=== PATIENT | female | born 1965 | race Caucasian/White ===

== ENCOUNTER 2020-10-13 12:21 | Emergency (ER) | payer BC ==
--- NOTE | 2020-10-13 13:13 | ER Document Report ---
ED Medical Screen (RME) - General Chief Complaint: Dizziness Stated Complaint: DIZZINESS Time Seen by Provider: 10/13/20 13:08 Mode of Arrival: Ambulatory Information source: Patient Notes: HPI; 55-year-old female past medical history significant for hypertension presents to the emergency room complaining of worsening lightheadedness with dizziness for the past 2 weeks. States she is feeling off balance when she walks. Feels like she is leaning to the right. Denies any trauma or injury. No recent head injuries. No nausea, no vomiting, no chest pain, no shortness of breath, no COVID-19 exposure. No history of vertigo. PE: Alert and oriented x3. Lungs: Clear to auscultation without rales, rhonchi, wheezes. Heart: Regular rate rhythm without murmurs, rubs, gallops. Ambulatory with a steady gait. Neurovascularly intact I have greeted and performed a rapid initial assessment of this patient. A comprehensive ED assessment and evaluation of the patient, analysis of test re sults and completion of the medical decision making process will be conducted by additional ED providers. I have specifically instructed the patient or family members with the patient to immediately return to any nursing staff should anything change in the patient's condition or with their chief complaint. TRAVEL OUTSIDE OF THE [place] IN LAST 30 DAYS: No Physical Exam - Vital signs Vitals: Temp Pulse Resp BP Pulse Ox 98.1 F 81 18 149/75 H 97 10/13/20 12:56 10/13/20 12:56 10/13/20 12:56 10/13/20 12:56 10/13/20 12:56 Course - Vital Signs Vital signs: Temp Pulse Resp BP Pulse Ox 98.8 F 83 18 191/99 H 98 10/13/20 13:08 10/13/20 13:08 10/13/20 13:08 10/13/20 13:08 10/13/20 13:08
[2020-10-13 14:01] LABS: ABSOLUTE BASOPHILS # (AUTO) 0.1 10^3/uL (0.0-0.2); ABSOLUTE EOSINOPHILS # (AUTO) 0.2 10^3/uL (0.0-0.6); ABSOLUTE LYMPHOCYTES (AUTO) 2.7 10^3/uL (0.5-4.7); ABSOLUTE MONOCYTES (AUTO) 0.8 10^3/uL (0.1-1.4); BASOPHILS % (AUTO) 0.8 % (0-2); EOSINOPHILS % (AUTO) 1.3 % (0-6); HEMATOCRIT 47.8 % (36.0-47.0); HEMOGLOBIN 16.5 g/dL (12.0-15.5); LYMPHOCYTES % (AUTO) 21.1 % (13-45); MEAN CORPUSCULAR HGB CONC 34.6 g/dL (32.0-36.0); MEAN CORPUSCULAR VOLUME 98 fl (80-97); PLATELET COUNT 485 10^3/uL (150-450); RED BLOOD COUNT 4.86 10^6/uL (3.72-5.28); RED CELL DISTRIBUTION WIDTH 12.4 % (11.5-14.0); SEGMENTED NEUTROPHILS % (AUTO) 70.8 % (42-78); TOTAL CELLS COUNTED % (AUTO) 100 %; WHITE BLOOD COUNT 12.7 10^3/uL (4.0-10.5)
--- NOTE | 2020-10-13 14:03 | RADIOLOGY REPORT (SQ) ---
EXAM DESCRIPTION: CT HEAD WITHOUT IMAGES COMPLETED DATE/TIME: 10/13/2020 1:53 pm REASON FOR STUDY: dizzy COMPARISON: None. TECHNIQUE: Axial images acquired through the brain without intravenous contrast. Images reviewed wi th bone, brain and subdural windows. Additional sagittal and coronal reconstructions were generated. Images stored on PACS. All CT scanners at this facility use dose modulation, iterative reconstruction, and/or weight based d osing when appropriate to reduce radiation dose to as low as reasonably achievable (ALARA). [facility]: Dose Right [facility]: CareDose [facility]: Dose Right [facility]: Teradose 4D [facility]: Smart roomlinx RADIATION DOSE: CT Rad equipment meets quality standard of care and radiation dose reduction techniq ues were employed. CTDIvol: 53.2 mGy. DLP: 991 mGy-cm. mGy. LIMITATIONS: None. FINDINGS: VENTRICLES: Normal size and contour. CEREBRUM: No masses. No hemorrhage. No midline shift. No evidence for acute infarction. Normal gra y/white matter differentiation. No areas of low density in the white matter. CEREBELLUM: No masses. No hemorrhage. No alteration of density. No evidence for acute infarction. EXTRAAXIAL SPACES: No fluid collections. No masses. ORBITS AND GLOBE: No intra- or extraconal masses. Normal contour of globe without masses. CALVARIUM: No fracture. PARANASAL SINUSES: No fluid or mucosal thickening. SOFT TISSUES: No mass or hematoma. OTHER: No other significant finding. IMPRESSION: NORMAL BRAIN CT WITHOUT CONTRAST. EVIDENCE OF ACUTE STROKE: NO. COMMENT: Quality ID # [id number]: Final reports with documentation of one or more dose reduction techniques (e.g., Automated exposure control, adjustment of the mA and/or kV according to patient size, use of iterative reconstruction technique) TECHNICAL DOCUMENTATION: JOB ID: [id number] 2010 [employer]- All Rights Reserved Reading location - IP/workstation name: [email or web address]
[2020-10-13 14:06] LABS: APPEARANCE,URINE CLEAR; BILIRUBIN,URINE NEGATIVE (NEGATIVE); COLOR,URINE YELLOW; GLUCOSE, URINE NEGATIVE (NEGATIVE); KETONES,URINE NEGATIVE (NEGATIVE); LEUKOCYTE ESTERASE,URINE NEGATIVE (NEGATIVE); NITRITE,URINE NEGATIVE (NEGATIVE); PROTEIN,URINE NEGATIVE (NEGATIVE); URINE SPECIFIC GRAVITY 1.008; UROBILINOGEN,URINE NEGATIVE mg/dL (<2.0)
[2020-10-13 14:15] LABS: ALBUMIN 4.6 g/dL (3.5-5.0); ALKALINE PHOSPHATASE 84 U/L (38-126); ANION GAP 10 (5-19); ASPARTATE AMINO TRANSFERASE 22 U/L (14-36); BILIRUBIN,DIRECT 0.3 mg/dL (0.0-0.4); BILIRUBIN,TOTAL 0.6 mg/dL (0.2-1.3); BLOOD UREA NITROGEN 9 mg/dL (7-20); CALCIUM 10.1 mg/dL (8.4-10.2); CARBON DIOXIDE 28 mmol/L (22-30); CHLORIDE 99 mmol/L (98-107); GLUCOSE 106 mg/dL (75-110); POTASSIUM 5.8 mmol/L (3.6-5.0)
--- NOTE | 2020-10-13 15:50 | EKG REPORT ---
SEVERITY:- NORMAL ECG - SINUS RHYTHM : Confirmed by: Halley Simental MD 13-Oct-2020 15:49:22
[2020-10-13] MEDS ORDERED: NORMAL SALINE 1000 ML 1,000 ML IV ONE (22:18)
[2020-10-13] MEDS ORDERED: MECLIZINE HCL 25 MG TABLET PO ONE (22:18)
--- NOTE | 2020-10-13 22:20 | ER Document Report ---
ED General - General Chief Complaint: Dizziness Stated Complaint: DIZZINESS Time Seen by Provider: 10/13/20 13:08 Mode of Arrival: Ambulatory Notes: Patient is a 55-year-old female that comes emergency department for chief complaint of lack of balance for the past 2 weeks. She also feels lightheadedness but denies dizziness or passing out. She denies the sensation of spinning around the room. She states she feels like she is fighting to walk in a straight line, she has run into the wall a couple of times at home, and she states she is always falling to the left. This has not changed with each day. She denies head injury, fever/chills, recent illness or congestion, chest pain, shortness of breath, nausea, vomiting, headache. She has a history of hypertension, smokes, previously drink heavily but now drinks intermittently. She denies recreational drugs. She denies medical history otherwise. TRAVEL OUTSIDE OF THE [place] IN LAST 30 DAYS: No - Related Data Allergies/Adverse Reactions: Penicillins Adverse Reaction (Verified 10/13/20 20:49) Home Medications: HTN MEDS Past Medical History - General Information source: Patient - Social History Smoking Status: Current Every Day Smoker Smoking Education Provided: Yes - <3 min Frequency of alcohol use: Heavy Drug Abuse: None Lives with: Alone Family History: Reviewed & Not Pertinent - Past Medical History Cardiac Medical History: Reports: Hx Hypertension - Immunizations Immunizations up to date: Yes Hx Diphtheria, Pertussis, Tetanus Vaccination: Yes Review of Systems - Review of Systems Constitutional: No symptoms reported EENT: No symptoms reported Cardiovascular: See HPI Respiratory: No symptoms reported Gastrointestinal: No symptoms reported Genitourinary: No symptoms reported Female Genitourinary: No symptoms reported Musculoskeletal: No symptoms reported Skin: No symptoms reported Hematologic/Lymphatic: No symptoms reported Neurological/Psychological: See HPI Physical Exam - Vital signs Vitals: Temp Pulse Resp BP Pulse Ox 98.1 F 81 18 149/75 H 97 10/13/20 12:56 10/13/20 12:56 10/13/20 12:56 10/13/20 12:56 10/13/20 12:56 - Notes Notes: GENERAL: Alert, interacts well. No acute distress. HEAD: Normocephalic, atraumatic. EYES: Pupils equal, round, and reactive to light. Extraocular movements intact. Horizontal nystagmus to the left ENT: Oral mucosa moist, tongue midline. Oropharynx unremarkable. Airway patent. Moderate amount of cerumen especially in the right ear, left ear unremarkable NECK: Full range of motion. Supple. Trachea midline. No lymphadenopathy. LUNGS: Clear to auscultation bilaterally, no wheezes, rales, or rhonchi. No respiratory distress. Non-tender chest wall. HEART: Regular rate and rhythm. No murmur ABDOMEN: Soft, non-tender. Non-distended. EXTREMITIES: Moves all 4 extremities spontaneously. No edema, normal radial and dorsalis pedis pulses bilaterally. No cyanosis. BACK: no cervical, thoracic, lumbar midline tenderness. No saddle anesthesia, normal distal neurovascular exam. Moves all extremities in full range of motion. NEUROLOGICAL: Alert and oriented x3. Normal speech. Cranial nerves II through XII grossly intact. [id number] testing normal. Strength 5/5 in all extremities. Patient with ataxia with leaning to the left consistently PSYCH: Normal affect, normal mood. SKIN: Warm, dry, normal turgor. No rashes or lesions noted. Course - Re-evaluation Re-evalutation: Patient does have some earwax on exam and she has nystagmus noted horizontally to the left. Her remaining neurological exam is unremarkable until I ambulate her, when I ambulated her patient appeared to be attempting to keep from falling down, she appears to lean to the left very consistently and has ataxia as a result. CT of the head is unremarkable. CBC unremarkable. Chemistry shows hyperkalemia at 5.8 but EKG has unremarkable appearance. Patient was given IV f luids. Chest x-ray unremarkable. Troponin unremarkable. I discussed with patient. Despite her CAT scan being negative based on her exam I am concerned that she has a cerebellar lesion and I recommended we admit her for an MRI of the head and risk stratification. Patient declined, she states that she needs to go home, she understands the risk of having a devastating stroke, she states that despite this she is willing to take the risk and leave, however she does state that she is planning to come back tomorrow to get the recommended evaluation. She states she does not have the opportunity to stay tonight but she does state that she will be back in the morning. Patient is pleasant, coherent, clearly has capacity. I again discussed this with her but she maintained her physician. I discussed with Dr. Pierson. She recommends patient to stay and if not she can sign out AGAINST MEDICAL ADVICE, patient signed out AGAINST MEDICAL ADVICE. - Vital Signs Vital signs: Temp Pulse Resp BP Pulse Ox 97.6 F 86 16 141/59 H 99 10/13/20 23:47 10/13/20 23:53 10/13/20 23:53 10/13/20 23:53 10/13/20 23:53 - Laboratory Result Diagrams: 10/13/20 13:39 10/13/20 13:39 Laboratory results interpreted by me: 10/13/20 10/13/20 10/13/20 13:39 13:39 13:39 WBC 12.7 H Hgb 16.5 H Hct 47.8 H MCV 98 H MCH 34.0 H Plt Count 485 H Absolute Neuts (auto) 9.0 H Sodium 136.8 L Potassium 5.8 H Urine Blood MODERATE H - EKG Interpretation by Me Additional EKG results interpreted by me: EKG shows sinus rhythm at a rate of 70, QTc 436, normal axis, no T wave inversions or ST segment changes in consecutive leads Discharge - Discharge Clinical Impression: Ataxia, Hyperkalemia Condition: Stable Disposition: HOME, SELF-CARE Additional Instructions: Your work-up shows only high potassium, you were treated for this, this just needs to be rechecked. However your evaluation is very concerning for suspected stroke in the cerebellum (balanced part of your brain) as we discussed. You have declined admission for an MRI at this time. You are signing out AGAINST MEDICAL ADVICE, there is a chance that you have new or worsening symptoms which could be severe or even life-threatening. I recommend that you return immediately or seek medical care nearby as soon as possible.
--- NOTE | 2020-10-13 23:03 | RADIOLOGY REPORT (SQ) ---
CHEST X-RAY 1 VIEW on 10/13/2020 at 10:21 PM CLINICAL INDICATION: Weakness, lightheadedness COMPARISON: None FINDINGS: The lungs are clear. Mild vascular calcification is noted in the aorta. Cardiac, hilar and mediastinal contours are within normal limits. Pulmonary vascularity is within normal limits. No bony abnormality is noted. IMPRESSION: No active disease.
[2020-10-13 23:53] VITALS: BP 141/59
== END 2020-10-13 23:58 | disposition home or self-care (01) ==
LOC: ER 12:21
DX: R27.0 Ataxia, unspecified (principal); E87.5 Hyperkalemia; H61.21 Impacted cerumen, right ear; H55.00 Unspecified nystagmus; I10 Essential (primary) hypertension; F17.200 Nicotine dependence, unspecified, uncomplicated; Z79.899 Other long term (current) drug therapy; Z53.29 Procedure and treatment not carried out because of patient's decision for other reasons
CPT/HCPCS: 93005; 99285; 96360; 36415; 80307; 85025; 80053; 81001; 84484; 71045; 70450; 93010; J7030

== ENCOUNTER 2020-10-14 07:33 | Emergency (ER) | payer BC ==
--- NOTE | 2020-10-14 09:01 | ER Document Report ---
ED General - General Chief Complaint: Dizziness Stated Complaint: DIZZINESS Time Seen by Provider: 10/14/20 09:00 Primary Care Provider: KINJAL WILLETT [Primary Care Provider] - Follow up as needed Mode of Arrival: Ambulatory Information source: Patient Notes: Patient is a 55-year-old female presenting to the emergency department chief complaint of dizziness. Patient states she has had this ongoing for about 2 weeks she was here last night and was seen laboratory studies demonstrated hyperkalemia which was addressed CT was of her brain was negative and it was recommended that she have an MRI of her brain but patient was here so long she states that she was too tired and did not want to stay she comes back today for further evaluation. TRAVEL OUTSIDE OF THE [place] IN LAST 30 DAYS: No - HPI Onset: Other - 2wks Onset/Duration: Persistent Quality of pain: No pain Severity: None Pain Level: Denies Associated symptoms: None Exacerbated by: Standing, Movement, Walking Relieved by: Supine, Standing Similar symptoms previously: Yes Recently seen / treated by doctor: Yes - Related Data Allergies/Adverse Reactions: Penicillins Adverse Reaction (Verified 10/13/20 20:49) Past Medical History - General Information source: Patient, [facility] Records - Social History Smoking Status: Current Every Day Smoker Cigarette use (# per day): Yes Chew tobacco use (# tins/day): No Smoking Education Provided: Yes Frequency of alcohol use: Occasional Drug Abuse: None Family History: Reviewed & Not Pertinent Patient has suicidal ideation: No Patient has homicidal ideation: No - Past Medical History Cardiac Medical History: Reports: Hx Hypertension - Immunizations Immunizations up to date: Yes Hx Diphtheria, Pertussis, Tetanus Vaccination: Yes Review of Systems - Review of Systems Notes: REVIEW OF SYSTEMS: CONSTITUTIONAL : Denies fever, chills, or sweats. Denies recent illness. EENT: Denies eye, ear, throat, or mouth pain or symptoms. Denies nasal or sinus congestion. CARDIOVASCULAR: Denies chest pain. RESPIRATORY: Denies cough, cold, or chest congestion. Denies shortness of breath, difficulty breathing, or wheezing. GASTROINTESTINAL: Denies abdominal pain. Denies nausea, vomiting, or diarrhea. Denies constipation. GENITOURINARY: Denies difficulty urinating, painful urination, burning, frequency, or blood in urine. MUSCULOSKELETAL: Denies neck or back pain or joint pain or swelling. SKIN: Denies rash or skin lesions. HEMATOLOGIC : Denies easy bruising or bleeding. NEUROLOGICAL: Dizziness PSYCHIATRIC: Denies suicidal or homicidal ideations 10 Systems are negative unless otherwise specified above Physical Exam - Vital signs Vitals: Temp Pulse Resp BP Pulse Ox 98.1 F 90 16 127/62 H 98 10/14/20 07:37 10/14/20 07:37 10/14/20 07:37 10/14/20 07:37 10/14/20 07:37 - Notes Notes: PHYSICAL EXAMINATION: GENERAL: Well-appearing, well-nourished and in no acute distress. HEAD: Atraumatic, normocephalic. EYES: Pupils equal round and reactive to light, extraocular movements intact, sclera anicteric, conjunctiva are normal. ENT: nares patent, oropharynx clear without exudates. Moist mucous membranes. NECK: Normal range of motion, supple without lymphadenopathy, no appreciable JVD LUNGS: Lungs clear to auscultation bilaterally and equal. No wheezes rales or rhonchi. HEART: Regular rate and rhythm without murmurs ABDOMEN: Soft, nontender, normal bowel sounds. No guarding, no rebound. No masses appreciated. EXTREMITIES: Active full range of motion, no pitting or edema. No cyanosis. 2+ pulses x4 NEUROLOGICAL: At time of evaluation the patient is alert and oriented x3, Glascow coma scale of 15, cranial nerves II through XII are grossly intact, sensations intact, motor is intact, there are no signs of nystagmus, there is no pronator drift, there is no facial asymmetry, tongue protrusion is midline, reflexes are equal and bilateral, patient ambulates with left leaning ataxia, patient answers all questions appropriately follows commands appropriately. SKIN: Warm, Dry, and intact. Normal turgor, no rashes or lesions noted. Course - Re-evaluation Re-evalutation: 10/14/20 15:30 Patient is remained stable the entire time in the emergency department the patient has been able to ambulate to the bathroom without difficulty. Laboratory studies have normalized an MRI of the brain is read by radiologist as negative. Patient is recommended to follow-up with ear nose and throat for further evaluation. Patient is agreeable with care plan and will be discharged home in stable condition - Vital Signs Vital signs: Temp Pulse Resp BP Pulse Ox 98.1 F 90 16 127/62 H 98 10/14/20 07:37 10/14/20 07:37 10/14/20 07:37 10/14/20 07:37 10/14/20 07:37 - Laboratory Result Diagrams: 10/14/20 10:09 - Diagnostic Test Radiology reviewed: Reports reviewed Discharge - Discharge Clinical Impression: Dizziness Condition: Stable Disposition: HOME, SELF-CARE Instructions: Vertigo ([facility]), Dizziness ([facility]) Forms: Smoking Cessation Education Referrals: LOCALMD,NO [Primary Care Provider] - Follow up as needed
[2020-10-14 10:54] LABS: ANION GAP 7 (5-19); BLOOD UREA NITROGEN 9 mg/dL (7-20); CALCIUM 9.6 mg/dL (8.4-10.2); CARBON DIOXIDE 26 mmol/L (22-30); CHLORIDE 105 mmol/L (98-107); GLUCOSE 103 mg/dL (75-110)
[2020-10-14 11:12] LABS: POTASSIUM 4.8 mmol/L (3.6-5.0)
[2020-10-14 15:49] VITALS: BP 125/60
--- NOTE | 2020-10-14 17:40 | RADIOLOGY REPORT (SQ) ---
EXAM DESCRIPTION: MRI HEAD WITHOUT IMAGES COMPLETED DATE/TIME: 10/14/2020 2:10 pm REASON FOR STUDY: ataxia COMPARISON: CT dated 10/13/2020. TECHNIQUE: Multiplanar imaging includes non-contrasted T1, T2, FLAIR, and diffusion with ADC map seq uences. Images stored on PACS. LIMITATIONS: None. FINDINGS: ANATOMY: No anomalies. Normal vascular flow voids. Pituitary fossa normal. CSF SPACES: Normal in size and contour. No hemorrhage. CEREBRUM: Sulci and gyri normal in size and contour. Normal white matter signal on FLAIR imaging. No evidence of hemorrhage, mass, or extraaxial fluid collection. POSTERIOR FOSSA: No signal alteration. No hemorrhage. No edema, masses or mass effect. Internal helen tory canals, cerebello-pontine angles, mastoids normal. DIFFUSION IMAGING: Negative for acute or sub-acute infarction. ORBITS: No masses. Globes normal. PARANASAL SINUSES: No fluid levels. Mucosa normal. OTHER: No other significant finding. IMPRESSION: NORMAL MRI OF THE BRAIN WITHOUT INTRAVENOUS GADOLINIUM CONTRAST. EVIDENCE OF ACUTE STROKE: NO. TECHNICAL DOCUMENTATION: JOB ID: [id number] [employer]- All Rights Reserved Reading location - IP/workstation name: [email or web address]
== END 2020-10-14 15:49 | disposition home or self-care (01) ==
LOC: ER 07:33
DX: R42 Dizziness and giddiness (principal); F17.210 Nicotine dependence, cigarettes, uncomplicated; I10 Essential (primary) hypertension
CPT/HCPCS: 36415; 70551; 80048; 99284